=== PATIENT | female | born 1935 | race Caucasian/White ===

== ENCOUNTER → 2017-02-04 | Outpatient (CLI) | payer MEDICARE, OTHER | END | disposition home or self-care (01) | LOC: RADPV 10:20 | PROVIDERS: ATTEND Orthopaedic Surgery | DX: S32.511A Fracture of superior rim of right pubis, initial encounter for closed fracture (principal); W19.XXXA Unspecified fall, initial encounter; Y93.9 Activity, unspecified; Y92.9 Unspecified place or not applicable; Y99.9 Unspecified external cause status | CPT/HCPCS: 72170; 73552 ==

== ENCOUNTER → 2017-02-28 | Outpatient (CLI) | payer MEDICARE, OTHER | END | disposition home or self-care (01) | LOC: RADPV 10:10 | PROVIDERS: ATTEND Orthopaedic Surgery | DX: S32.511D Fracture of superior rim of right pubis, subsequent encounter for fracture with routine healing (principal); S32.591D Other specified fracture of right pubis, subsequent encounter for fracture with routine healing; K59.00 Constipation, unspecified; X58.XXXD Exposure to other specified factors, subsequent encounter | CPT/HCPCS: 72170 ==

== ENCOUNTER → 2017-04-11 | Outpatient (CLI) | payer MEDICARE, OTHER | END | disposition home or self-care (01) | LOC: RADPV 09:55 | PROVIDERS: ATTEND Orthopaedic Surgery | DX: S32.591D Other specified fracture of right pubis, subsequent encounter for fracture with routine healing (principal); S32.511D Fracture of superior rim of right pubis, subsequent encounter for fracture with routine healing; M12.88 Other specific arthropathies, not elsewhere classified, other specified site; X58.XXXD Exposure to other specified factors, subsequent encounter | CPT/HCPCS: 72170 ==

== ENCOUNTER → 2019-05-14 | Outpatient (CLI) | payer MEDICARE, OTHER | END | disposition home or self-care (01) | LOC: RADPV 08:54 | PROVIDERS: ATTEND Orthopaedic Surgery | DX: M17.0 Bilateral primary osteoarthritis of knee (principal) ==